=== PATIENT | female | born 1945 | race Caucasian/White ===

== ENCOUNTER 2019-02-01 20:20 | Emergency (ER) | payer MEDICARE, OTHER ==
[2019-02-02] MEDS: LOSARTAN 50 MG TAB PO (00:18)
== END 2019-02-02 01:27 | disposition home or self-care (01) ==
LOC: FTE 20:20
DX: S01.01XA Laceration without foreign body of scalp, initial encounter (principal); I10 Essential (primary) hypertension; E03.9 Hypothyroidism, unspecified; W26.8XXA Contact with other sharp object(s), not elsewhere classified, initial encounter; Y92.9 Unspecified place or not applicable
CPT/HCPCS: 12001; 70450; 93005; 99284-25